=== PATIENT | female | born 1985 | race Caucasian/White ===

== ENCOUNTER 2018-04-09 20:02 | Emergency (ER) | payer OTHER ==
[~2018-04-09] VITALS: Ht 152.4 cm; Wt 63.5 kg
[~2018-04-09 20:02] MED LIST: LITH300T27 PO; NORG7TAB2 PO
--- NOTE | 2018-04-09 20:30 | NUR ---
PT LANDY LAP[employer]onda FOR "ATTEMPTED SUICIDE" FROM HOME. PER [employer] OFFICERS, ACCORDING TO PT'S THERAPIST THAT PT HAS ENOUGH MEDS TO KILL HERSELF AT HOME AND VERBALIZED FEELINGS OF SUICIDAL EARLIER. PT DENIES FEELING SUICIDAL OF THE MOMENT STATING THAT IF SHE WANTS TO KILL HERSELF SHE WOULD NOT USE PILLS TO DO IT SHE TRIED THAT BEFORE AND IT DIDN'T WORK AND THAT SHE WOULD RATHER JUMP OFF A BRIDGE. PT AAOX4, FOLLOWS COMMANDS, NOTED CALM, TALKATIVE, DIRECTABLE. VSS. SAFELY PLACED ON ONE POINT RESTRAINT PER PROTOCOL. SAFETY AND COMFORT MEASURES PROVIDED. WILL MONITOR.
--- NOTE | 2018-04-09 20:40 | NUR ---
URINE SAMPLE OBTAINED, SENT. COMIC ARTIST AT FOR BLOOD DRAW.
[2018-04-09 20:43] LABS: APPEARANCE,URINE Clear (CLEAR); BILIRUBIN,URINE Negative (NEGATIVE); BLOOD, URINE Trace-lysed Ery/uL (NEGATIVE); COLOR,URINE Yellow (YELLOW); KETONES,URINE Negative (NEGATIVE); LEUKOCYTE ESTERASE ,URINE Moderate (NEGATIVE); NITRITE, URINE Negative (NEGATIVE); PH,URINE 7.5 (5.0-8.0); PROTEIN,URINE Negative (NEGATIVE); UGLUCOSE Negative (NEGATIVE); UROBILINOGEN,URINE 0.2 EU/dL (0.2)
[2018-04-09 20:43] LABS: BASOPHILS # (AUTO) 0.1 /CMM (0.0-0.2); BASOPHILS % (AUTO) 1.3 % (0.0-2.0); EOSINOPHILS % (AUTO) 1.2 % (0.0-6.0); HEMATOCRIT 44 % (33-45); LYMPHOCYTES # (AUTO) 2.3 /CMM (0.8-4.8); LYMPHOCYTES % (AUTO) 27.8 % (20.0-44.0); MEAN CORPUSCULAR HGB CONC 34 g/dl (31.0-36.0); MEAN CORPUSCULAR VOLUME 87 fL (82-100); MONOCYTES # (AUTO) 0.5 /CMM (0.1-1.30); MONOCYTES % (AUTO) 6.3 % (2.0-12.0); NEUTROPHILS # (AUTO) 5.2 /CMM (1.8-8.9); NEUTROPHILS % (AUTO) 63.4 % (43.0-81.0); PLATELET COUNT (AUTO) 324 /CMM (150-450); RDW COEFFICIENT OF VARIATION 12.3 (11.5-15.0); RED BLOOD CELL COUNT(AUTO) 5.06 MIL/uL (4.0-5.2); WHITE BLOOD COUNT (AUTO) 8.2 K/uL (4.3-11.0)
[2018-04-09 20:53] LABS: BACTERIA,URINE 1+ /HPF (None Seen); SQUAMOUS EPITHELIAL CELL,UR Few /HPF (None Seen)
[2018-04-09 20:54] LABS: CALCIUM, SERUM 9.3 mg/dL (8.5-10.1); CARBON DIOXIDE 26 mmol/L (21-32); CHLORIDE 106 mmol/L (98-107); CREATININE 0.7 mg/dL (0.6-1.3); GLUCOSE 88 mg/dL (74-106); POTASSIUM 3.4 mmol/L (3.5-5.1); SODIUM SERUM 141 mmol/L (136-145); UREA NITROGEN, BLOOD 12 mg/dL (7-18)
[2018-04-09 20:59] LABS: ACETAMINOPHEN < 2 ug/ml (10-30); ALANINE AMINOTRANSFERASE 17 U/L (12-78); ALBUMIN 4.1 g/dL (3.4-5.0); ALCOHOL, BLOOD < 3 mg/dL (0-0); ALKALINE PHOSPHATASE 78 U/L (46-116); ASPARTATE AMINOTRANSFERASE 15 U/L (15-37); BILIRUBIN,DIRECT 0.2 mg/dL (0.0-0.2); BILIRUBIN,TOTAL 1.1 mg/dL (0.2-1.0); SALICYLATE < 0.2 mg/dL (2.8-20.0); TOTAL PROTEIN, SERUM 7.8 g/dL (6.4-8.2)
[2018-04-09] MEDS ORDERED: POTASSIUM CHLORIDE 20 MEQ TAB.PRT.SR PO ONE ×2 (21:30→22:01)
[2018-04-09] MEDS ORDERED: SULFAMETH/TRIMETH 800/160 MG 1 UDTAB TABLET PO ONE ×2 (21:30→22:01)
--- NOTE | 2018-04-09 22:05 | NUR ---
DUSTIN AKHTAR- THERAPIST [phone]
--- NOTE | 2018-04-09 22:08 | NUR ---
ART STEEPING PRESS TENDER PAGED
--- NOTE | 2018-04-09 22:20 | NUR ---
CALLED [facility] AND SPOKE TO BLOOD BANK TECHNOLOGIST MARYBEL AND GAVE HER AN UPDATE THAT THIS PT WAS PRESENT IN OUR ER. WILL CALL BACK IF NEEDED
--- NOTE | 2018-04-09 22:45 | NUR ---
REJI BARRAGANW AT FOR EVAL.
--- NOTE | 2018-04-09 22:48 | NUR ---
ART CIGAR INSPECTOR AT BEDSIDE FOR EVAL.
--- NOTE | 2018-04-09 22:52 | NUR ---
CALLED HSAWNA DIETRICH MD TO CALL
--- NOTE | 2018-04-09 23:00 | NUR ---
PT'S FRIEND AT BS.
[2018-04-09 23:36] VITALS: BP 141/85
--- NOTE | 2018-04-09 23:36 | NUR ---
Patient discharged to home in stable condition. Written and verbal after care instructions given. Patient verbalizes understanding of instruction.
--- NOTE | 2018-04-09 23:37 | NUR ---
PT LEFT WITH HER FIREND.
== END 2018-04-09 23:37 | disposition home or self-care (01) ==
LOC: ER 20:03
DX: R45.851 Suicidal ideations (principal); E03.9 Hypothyroidism, unspecified; N30.00 Acute cystitis without hematuria; E87.6 Hypokalemia; F31.9 Bipolar disorder, unspecified; Z88.1 Allergy status to other antibiotic agents; Z88.0 Allergy status to penicillin; Z88.8 Allergy status to other drugs, medicaments and biological substances
CPT/HCPCS: 36415; 80048-TC; 80076-TC; 80305; 81000-TC; 84703-TC; 85025-TC; 87086-TC; A4606; G0480; Z7610